=== PATIENT | male | born 1985 | race Caucasian/White ===

== ENCOUNTER 2020-07-28 15:49 | Emergency (ER) | payer OTHER ==
[~2020-07-28] VITALS: Ht 167.6 cm; Wt 0.5 kg
== END 2020-07-28 17:43 | disposition home or self-care (01) ==
LOC: ER 15:49
DX: M54.2 Cervicalgia (principal)

== ENCOUNTER 2021-02-01 12:47 | Emergency (ER) | payer OTHER ==
[~2021-02-01] VITALS: Ht 170.2 cm; Wt 80.7 kg
[2021-02-01] MEDS ORDERED: ZITHROMAX500 MG PO (17:44)
[2021-02-01] MEDS ORDERED: TUSSIN DM SYRU118 ML PO (17:44)
== END 2021-02-01 17:58 | disposition home or self-care (01) ==
LOC: ER 12:47
DX: B34.9 Viral infection, unspecified (principal)